=== PATIENT | female | born 1940 | race African-American/Black ===

== ENCOUNTER 2018-11-16 04:44 | Inpatient (IN) ==
[2018-11-16] MEDS ORDERED: VANCOMYCIN 1,000 MG VIAL ONE (05:57)
[2018-11-16] MEDS ORDERED: ceFAZolin 1,000 MG VIAL ONE (05:57)
[2018-11-16] MEDS ORDERED: GABAPENTIN 400 MG CAPSULE PO ONE (06:19)
[2018-11-16] MEDS ORDERED: ACETAMINOPHEN 500 MG TABLET PO ONE (06:19)
[2018-11-16] MEDS ORDERED: LACTATED RINGERS 1,000 ML IV SCH (06:30)
[2018-11-16] MEDS ORDERED: TRANEXAMIC ACID 1,000 MG/10 ML VIAL ONE ×2 (06:38→09:54)
[2018-11-16] MEDS ORDERED: ACETAMINOPHEN 500 MG TABLET ONE (06:50)
[2018-11-16] MEDS ORDERED: GABAPENTIN 400 MG CAPSULE ONE (06:50)
[2018-11-16] MEDS ORDERED: VANCOMYCIN INJ 1,000 MG in SODIUM CHLORIDE 0.9% 250 ML IV ONE (07:00)
[2018-11-16] MEDS ORDERED: ceFAZolin 1,000 MG in SYRINGE 1 EACH IV ONE (07:00)
[2018-11-16] MEDS ORDERED: ROPIVACAINE 0.5% 30 ML VIAL ONE (07:10)
[2018-11-16] MEDS ORDERED: TEMAZEPAM 7.5 MG CAPSULE PO PRN (08:37)
[2018-11-16] MEDS ORDERED: MORPHINE 4 MG/1 ML VIAL IV PRN (08:37)
[2018-11-16] MEDS ORDERED: BISACODYL 10 MG SUPP RECTAL PRN (08:37)
[2018-11-16] MEDS ORDERED: diphenhydrAMINE CAP 25 MG CAPSULE PO PRN (08:37)
[2018-11-16] MEDS ORDERED: ONDANSETRON 4 MG/2 ML VIAL IV PRN (08:37)
[2018-11-16] MEDS ORDERED: PROMETHAZINE 25 MG/1 ML VIAL IM PRN (08:37)
[2018-11-16] MEDS ORDERED: LACTULOSE 20 GM/30 ML UDCUP PO PRN (08:37)
[2018-11-16] MEDS ORDERED: ACETAMINOPHEN 500 MG TABLET PO PRN (08:40)
[2018-11-16] MEDS ORDERED: PROPOFOL 200 MG/20 ML VIAL IV ONE (09:52)
[2018-11-16] MEDS ORDERED: fentaNYL 100 MCG/2 ML VIAL ONE (09:53)
[2018-11-16] MEDS ORDERED: BUPIVACAINE SPINAL 0.75% 2 ML AMP SPINAL ONE (09:53)
[2018-11-16] MEDS ORDERED: ePHEDrine 50 MG/ML AMP ONE (09:53)
[2018-11-16] MEDS ORDERED: ONDANSETRON 4 MG/2 ML VIAL ONE (09:53)
[2018-11-16] MEDS ORDERED: PHENYLEPHRINE 1 MG/10 ML SYRINGE IV ONE (09:54)
[2018-11-16] MEDS: DOCUSATE SODIUM 100 MG CAPSULE PO SCH ×2 (13:24→20:16)
[2018-11-16] MEDS: TELMISARTAN 40 MG TABLET PO SCH (13:50)
[2018-11-16] MEDS: ceFAZolin 2,000 MG in PREMIX 1 EACH IV SCH (18:05)
[2018-11-16] MEDS: FONDAPARINUX 2.5 MG/0.5 ML SYRINGE SUBCUT SCH (20:16)
[2018-11-17] MEDS: ceFAZolin 2,000 MG in PREMIX 1 EACH IV SCH (01:52)
[2018-11-17 05:53] LABS: Basophils # 0.1 10*3/uL (0.0-0.2); Basophils % 0.6 % (0.0-0.8); Eosinophils # 0.1 10*3/uL (0.0-0.87); Eosinophils % 1.1 % (0.00-10.9); Hematocrit 35.9 VOL% (35.7-47.0); Hemoglobin 11.1 GM/DL (12.0-16.0); Immature Granulocytes % 0.6 %; Immature Granulocytes Absolute 0.05 #; Lymphocytes # 1.3 10*3/uL (1.4-4.0); Lymphocytes % 15.3 % (21.3-54.2); Mean Corpuscular HGB Conc 30.9 GM/DL (32-36); Mean Corpuscular Volume 88.2 FL (87-102); Mean Platelet Volume 11.7 FL (9.6-12.0); Monocytes % 9.1 % (1.7-12.7); Neutrophils % 73.3 % (38.7-73.9); Platelet Count 247 T/CUMM (130-400); Red Blood Count 4.07 MC/CUMM (3.8-5.5); Red Cell Distribution Width 13.2 % (9.3-17.3); White Blood Count 8.5 T/CUMM (4-12)
[2018-11-17 06:19] LABS: Osmolality,Calculated 278.5 MOS/KG (273-304)
[2018-11-17] MEDS: LEVOTHYROXINE 100 MCG TABLET PO SCH (06:28)
[2018-11-17] MEDS: TELMISARTAN 40 MG TABLET PO SCH (09:26)
[2018-11-17] MEDS: DOCUSATE SODIUM 100 MG CAPSULE PO SCH ×2 (09:26→20:44)
[2018-11-17] MEDS: FONDAPARINUX 2.5 MG/0.5 ML SYRINGE SUBCUT SCH (20:44)
[2018-11-18] MEDS: LEVOTHYROXINE 100 MCG TABLET PO SCH (07:19)
[2018-11-18] MEDS: TELMISARTAN 40 MG TABLET PO SCH (08:29)
[2018-11-18] MEDS: DOCUSATE SODIUM 100 MG CAPSULE PO SCH ×2 (08:30→20:16)
[2018-11-18] MEDS: MAGNESIUM HYDROXIDE SUSP 30 ML UDCUP PO PRN (17:50)
[2018-11-18] MEDS: FONDAPARINUX 2.5 MG/0.5 ML SYRINGE SUBCUT SCH (20:16)
[2018-11-19] MEDS: LEVOTHYROXINE 100 MCG TABLET PO SCH (06:12)
[2018-11-19] MEDS: MAGNESIUM HYDROXIDE SUSP 30 ML UDCUP PO PRN (07:05)
[2018-11-19] MEDS: DOCUSATE SODIUM 100 MG CAPSULE PO SCH (08:17)
[2018-11-19] MEDS: TELMISARTAN 40 MG TABLET PO SCH (08:17)
[2018-11-19 11:51] VITALS: BP 127/65
== END 2018-11-19 12:50 | DRG 470 ==
LOC: N.OR 04:44 → N.SDSINP 04:45 → N.3E 11:07
PROVIDERS: ADMIT Orthopaedic Surgery; ATTEND Orthopaedic Surgery